=== PATIENT | male | born 1955 | race Caucasian/White ===

== ENCOUNTER → 2024-11-18 10:53 | Outpatient (REF) | payer MEDICARE, SELFPAY ==
--- OUTSIDE RECORDS SUMMARY | 2024-11-18 12:28 | XMS_ITS | Encounter Summary ---
Author Organization [facility] Address [address] [place] [address] Phone Care Team Providers Care Parquetry Floor Layer Name Role Phone Dashawn Johnson MD Unavailable Una Tamez APRN, [facility] Primary Care Provider Reason for Visit * Reason Comments Medication Refill Encounter Details Date Type Department Care Team (Late st Contact Info) Description 10/05/2023 Refill [facility] [address] [place] [id number] Ivan Austin MD [address] [id number] Medication Refill Social History Tobacco Use Types Packs/Day Years Used Date Smoking Tobacco: Never Assessed Sex and Gender Information Value Date Recorded Sex Assigned at Male 11/28/2023 10:34 AM CDT Legal Sex Male 11:33 PM CDT Gender Identity Male 11/28/2023 10:34 AM CDT Sexual Orientation Straight 11/28/2023 10 :34 AM CDT documented as of this encounter Miscellaneous Notes * Telephone Encounter - Zoë Lucero RN - 10/05/2023 9:40 AM CST Per nursing clinical judgement, provider to review and approve the medication(s) order(s) if appropriate. Requested Prescriptions Pending Prescriptions Disp Refills Tadalafil 5 MG Tablet [Pharmacy Med Name: TADALAFIL 5MG TABLETS] 30 Tablet Sig: TAKE 1 TABLET BY MOUTH DAILY Erectile Dysfunction Medication Protocol Failed - 10/05/2023 6:08 AM Failed - Active on medication list Failed - Visit with relevant provider in past 12 months or upcoming 90 days Recent Visits No visits were found meeting these conditions. Showing recent visits within past 365 days and meeting all other requirements Future Appointments No visits were found meeting these conditions. Showing future appointments within next 90 days and meeting all other requirements Failed - Erectile dysfunction on problem list Passed - Absence of nitrates on med list /DIE [employer]ER documented in this encounter Plan of Treatment Not on file documented as of this encounter Visit Diagnoses Not on filedocumented in this encounter Care Teams Parquetry Floor Layer Relationship Specialty Start Date End Date Una Tamez APRN, [employer] 4 [facility] [address] [place] [address] PCP - General Primary Care 03/04/24 Dashawn Johnson MD [address] [facility] [address] [place] [address] Consulting Physician General Surgery 11/29/23 documented as of this encounter
--- OUTSIDE RECORDS SUMMARY | 2024-11-18 12:28 | XMS_ITS | Referral Summary ---
Author Organization [facility] [address] Address [address] [place] [address] Care Team Providers Care Hand Paster Name Role Phone Una Tamez NP Primary Care Provider [phone] Encounters Date Type Department Care Team Description 09/24/2024 9:50 AM PILLOWCASE CLEANER Office Visit [address] [place] [id number] Maida Bacon NP S/P left inguinal hernia repair (Primary Dx) 09/13/2024 9:50 AM PILLOWCASE CLEANER - 09/13/2024 12:10 PM PILLOWCASE CLEANER Surgery [facility] Operating Room [address] [place] [address] Haroon Prabhakar MD INGUINAL HERNIA REPAIR WITH MESH - LAPAROSCOPIC ROBOTIC 09/13/2024 9:37 AM PILLOWCASE CLEANER Anesthesia Event [facility] [address] [place] [address] Adriana Estrada MD Williams, Calvin E., MD 09/13/2024 7:31 AM PILLOWCASE CLEANER - 09/13/2024 12:29 PM PILLOWCASE CLEANER Hospital Encounter [facility] Operating [facility] [address] [place] [address] Haroon Prabhakar MD Left inguinal hernia Discharge Disposition: Discharge to home or self care 08/29/2024 11:00 AM PILLOWCASE CLEANER Office Visit [facility] Primary Care at [address] [phone] Una Tamez NP Medicare annual wellness visit, subsequent (Primary Dx); Prediabetes; Mixed hyperlipidemia; Moderate episode of recurrent major depressive disorder (HCC) 08/22/2024 8:55 AM PILLOWCASE CLEANER Office Visit [address] [place] [address] Haroon Prabhakar MD Inguinal hernia of left side without obstruction or gangrene from Last 3 Months Allergies Active Allergy Reactions Criticality Noted Date Comments Amoxicillin Stomach upset Reaction: stomach issues, Medications atorvastatin (LIPITOR) 20 mg tabletIndications: Mixed hyperlipidemia Take 1 tablet (20 mg total) by mouth daily 90 tablet 3 08/29/19 25 Active cetirizine (ZyrTEC) 10 mg tablet Take 1 tablet (10 mg total) by mouth daily as needed for allergies Active tadalafiL (CIALIS) 5 mg tablet Take 1 tablet (5 mg total) by mouth daily as needed for erectile dysfunction Active minocycline (MINOCIN,DYNACIN) 100 mg capsule Take 1 capsule (100 mg total) by mouth daily as needed Active vitamin b complex tablet Take 1 tablet by mouth daily as needed Active citalopram (CeleXA) 10 mg tablet Take 1 tablet (10 mg total) by mouth daily 90 tablet 10/24/19 25 Active citalopram (CeleXA) 10 mg tablet TAKE 1 TABLET(10 MG) BY MOUTH DAILY 90 tablet 1 07/09/20 24 025 Discontin ued(Reord er) Active Problems Problem Noted Date Diagnosed Date S/P left inguinal hernia repair 09/25/2024 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 Continue tadalafil 5mg daily. F/u 6 months. Due for PSA in March 2024 Basal cell carcinoma (BCC) of skin of neck 01/20 Assessment & Plan (01/20/2021 8:13 AM CDT): Noel 2nd opinion. Will place referral to [facility] for basal cell carcinoma on left side of neck Elevated fasting glucose 07/21/2020 Assessment & Plan (10/12/2023 9:00 AM PILLOWCASE CLEANER): A1c done in office and was 5.8%. discussed prediabetes and diet changes. Assessment & Plan (01/20/2021 8:09 AM CDT): Glucose was 120 on last CMP in June of 2020 so we will check a hemoglobin A1c with labs Medicare annual wellness visit, subsequent 07/21 Assessment & Plan (09/01/2024 9:02 PM PILLOWCASE CLEANER): -Recommended: Healthy diet. Avoiding junk food/fast food. -30 minutes of exercise most days of the week. Increase to 45 minutes for weight loss. Immunizations: Up to date continue present diet with no restrictions, routine labs ordered, call if any problems Follow-up in 6 months. Assessment & Plan (12/12/2022 9:10 AM CDT): -Recommended: Healthy diet. Avoiding junk food/fast food. -30 minutes of exercise most days of the week. Increase to 45 minutes for weight loss. Immunizations: Up to date continue present diet with no restrictions, routine labs ordered, call if any problems Follow-up in 6 months. Assessment & Plan (07/25/2021 3:09 PM PILLOWCASE CLEANER): Patient Counseling: --Nutrition: Stressed importance of moderation in sodium/caffeine intake, saturated fat and cholesterol, caloric balance, sufficient intake of fresh fruits, vegetables, --Exercise: Stressed the importance of regular exercise. --Injury prevention: Discussed safety belts, throw rugs in house, smoke detectors, --Dental health: Discussed importance of regular tooth brushing, flossing, and dental visits. --Immunizations reviewed and offered- fld Assessment & Plan (07/21/2020 7:38 AM PILLOWCASE CLEANER): -Recommended: Healthy diet. Avoiding junk food/fast food. -30 minutes of exercise most days of the week. Increase to 45 minutes for weight loss. Immunizations: Recommended shingrex continue present plan, routine labs ordered, call if any problems Follow-up in 6 months. Natalee 12/04/2019 Assessment & Plan (12/12/2022 9:09 AM CDT): Stable. Has exacerbations where he restarts minocycline but does not take daily. Assessment & Plan (06/07/2022 8:33 AM CDT): Follows with [facility] in [place]. Takes Minocycline PRN for Rosacea outbreaks. Assessment & Plan (01/20/2021 8:17 AM CDT): Patient takes daily for outbreaks as needed Assessment & Plan (07/21/2020 7:39 AM PILLOWCASE CLEANER): Uses minocycline on/off. Assessment & Plan (12/04/2019 3:03 PM CDT): Will restart minocycline daily x [address] refill if he still needs it. Will try to d/c after 6 months. He has physical scheduled later this summer. Allergic rhinitis 12/31/2018 Assessment & Plan (01/20/2021 8:10 AM CDT): Patient saw ENT and is now taking Zyrtec D which is her quite well for him Assessment & Plan (12/31/2018 4:59 PM CDT): After debris exposure, use Sinus Rinse Avoid ear cleaning techniques May use Cetirizine (Zyrtec) 10 mg as needed Raynaud's disease without gangrene 09/20/2017 Assessment & Plan (09/20/2017 8:15 AM PILLOWCASE CLEANER): Discussed raynaud's disease. He doesn't have pain with it. Discussed using nifedipine. He does not want to start this. Mixed hyperlipidemia 05/04/2017 Assessment & Plan (09/01/2024 9:02 PM PILLOWCASE CLEANER): Lipid abnormalities are stable, reviewed previous lipid levels in [facility]. Continue statin therapy. Lipitor (atorvastatin) Order for lipid panel was given today to be obtained. Pt voiced understanding of lab drawn and continuation of current medication regimen. Assessment & Plan (10/12/2023 8:48 AM PILLOWCASE CLEANER): Lipid abnormalities are stable. Pharmacotherapy as ordered. Lipids will be reassessed in 6 months. Assessment & Plan (12/12/2022 9:10 AM CDT): Lipid abnormalities are stable, reviewed previous lipid levels in [facility]. Pharmacotherapy as ordered. Order for lipid panel was given today to be obtained. Pt voiced understanding of lab drawn and continuation of current medication regimen. Assessment & Plan (08/23/2022 9:24 AM PILLOWCASE CLEANER): Lab Results Component Value Date CHOL 196 04/29/2022 CHOL 187 07/10/2020 CHOL 203 (H) 07/18/2018 Lab Results Component Value Date HDL 81 04/29/2022 HDL 86 07/10/2020 HDL 76 07/18/2018 Lab Results Component Value Date LDL 102 (H) 04/29/2022 LDL 87 07/10/2020 LDL 109 (H) 07/18/2018 Lab Results Component Value Date TRIG 50 04/29/2022 TRIG 58 07/10/2020 TRIG 89 07/18/2018 No results found for: POCCHDLR No results found for: POCNONHDL No results found for: POCCHLPL At goal - continue current regimen of atorvastatin 20 mg every day Assessment & Plan (06/07/2022 8:33 AM CDT): Lipid abnormalities are stable. Pharmacotherapy as ordered. Lipids will be reassessed in 6 months. Assessment & Plan (07/25/2021 3:02 PM PILLOWCASE CLEANER): Lipid abnormalities are stable. Pharmacotherapy as ordered. Lipids will be reassessed in 6 months. Assessment & Plan (01/20/2021 8:05 AM CDT): Lipid abnormalities are stable, reviewed previous lipid levels in [facility]. Pharmacotherapy as ordered. Order for lipid panel was given today to be obtained. Pt voiced understanding of lab drawn and continuation of current medication regimen. Assessment & Plan (07/21/2020 7:38 AM PILLOWCASE CLEANER): Lipid abnormalities are stable. Pharmacotherapy as ordered. Lipids will be reassessed in 6 months. Assessment & Plan (05/24/2018 7:46 AM CDT): Lipid abnormalities are improving with treatment. Pharmacotherapy as ordered. Lipids will be reassessed in 6 months Labs as ordered. Assessment & Plan (05/04/2017 8:00 AM CDT): Lipid abnormalities are improving with lifestyle modifications. Pharmacotherapy as ordered. Lipids will be reassessed in 6 months. Drug-induced erectile dysfunction 05/04/2017 Assessment & Plan (08/23/2022 9:24 AM PILLOWCASE CLEANER): Currently on levitra - no concerns at thsi time Assessment & Plan (05/04/2017 8:45 AM CDT): Will trial levitra instead of cialis, due to stomach upset. He will call with any problems in change of medication. Generalized anxiety disorder 03/01/2016 Overview (11/24/2016): Generalized anxiety disorder Assessment & Plan (05/04/2017 8:43 AM CDT): Doing well with celexa. Continue same dose daily. F/u 6 months Depression 05/23/2011 Overview (11/25/2016): Depression Assessment & Plan (09/01/2024 9:03 PM PILLOWCASE CLEANER): Stable on current medication. Continue citalopram as ordered. May follow up in 6 months Assessment & Plan (10/12/2023 8:39 AM PILLOWCASE CLEANER): Improved. Will decrease citalopram to 10mg x 14 days and then discontinue. Can always contact us if notices problems discontiuing medication. Assessment & Plan (12/12/2022 9:11 AM CDT): Stable on current medication. Continue citalopram as ordered. Patient states that since he is retired he has been considering if he needs citalopram. I recommended decreasing it to 10 mg for 3-6 months 1st. Patient may start to do this and will see how he is doing in 6 months May follow up in 6 months Assessment & Plan (08/23/2022 9:24 AM PILLOWCASE CLEANER): Stable continue current regimen of celexa 20 mg every day Patient reiterated no suicidal thoughts at this time; take medication as directed; contact 911 and go to the ER if becomes suicidal; discussed side effects of medication with patient; encouraged healthy diet and exericise; encouraged patient to see a counselor Assessment & Plan (06/07/2022 4:28 PM CDT): Stable on current medication. Continue citalopram as ordered. May follow up in 6 months Assessment & Plan (07/25/2021 3:04 PM PILLOWCASE CLEANER): Stable on current medication. Continue citalopram as ordered. May follow up in 6 months. Pt is retiring in September. He may try to wean off the citalopram after senior living. Discussed decreasing down to 10mg daily x 7 days, then discontinuing and time frame to notice different. Assessment & Plan (01/20/2021 8:05 AM CDT): Stable on current medication. Continue citalopram as ordered. May follow up in 6 months Assessment & Plan (07/21/2020 7:38 AM PILLOWCASE CLEANER): Stable on current medication. Continue citalopram as ordered. May follow up in 6 months Assessment & Plan (05/24/2018 7:46 AM CDT): Psychological condition is improving with treatment. Medication changes per orders. Psychological condition will be reassessed at the next regular appointment. Resolved Problems Problem Noted Date Diagnosed Date Resolved Date Left inguinal hernia 08/22/2024 025 Inguinal hernia of left side without obstruction or gangrene 10/12/2023 09/25/2024 Assessment & Plan (08/22/2024 8:54 AM PILLOWCASE CLEANER): Given the symptomatic nature we will set him up for a left inguinal hernia repair. We have discussed the need for mesh implantation. We have discussed postoperative lifting restrictions. He was in understanding of the plan. Preadmission testing will be sent in. Consent to be obtained. All questions answered. Viral URI 08/17/2022 12/12/2022 Assessment & Plan (08/23/2022 9:25 AM PILLOWCASE CLEANER): Sx consistent with viral URI - ER precuations given - can try benzocaine and tessalon for cough and sore throat. Will add muscinex and flonase as well due to sinus sx Impacted cerumen of right ear 12/31/2018 12/04/2019 Assessment & Plan (12/31/2018 5:00 PM CDT): Avoid ear cleaning techniques May use Cetirizine (Zyrtec) 10 mg as needed Strep pharyngitis 10/25/2018 12/04/2019 Assessment & Plan (12/12/2018 11:48 AM CDT): Rapid strep positive. Will treat with azithromycin. Ibuprofen for fever, throat pain. Call if no improvement in 5-7 days. F/u prn Assessment & Plan (10/25/2018 9:05 AM PILLOWCASE CLEANER): Strep A POC test positive in office. Will treat with keflex 500mg BID x10 days. Recommended salt gargles and OTC tylenol as needed for pain and fevers. Encounter for annual general medical examination without abnormal findings in adult 05/24/2018 12/04/2019 Assessment & Plan (05/24/2018 7:45 AM CDT): -Recommended: Healthy diet. Avoiding junk food/fast food. -30 minutes of exercise most days of the week. -Colonoscopy screenings are up to date -Influenza vaccine every year - up to date - updated tdap today -he is interested in shingles vaccine - recommended pharmacy, as we do not carry it currently -F/u in 1 year for Annual PE or sooner if needed Other acute sinusitis 09/20/20172017 Assessment & Plan (11/06/2017 3:34 PM CDT): I recommended claritin D or 12 hour sudafed twice daily for a few days. I'd like him to try these first and if symptoms worsen or do not improve with Claritin D then I would like him to go ahead and start the Omnicef that I am calling in twice daily for 10 days. Assessment & Plan (09/20/2017 7:35 AM PILLOWCASE CLEANER): 1. Sudafed 2. azithromycin 3. Nasal saline rinses as needed for congestion. 4. Follow-up in 5-7 days - if symptoms worsen or persist Other chest pain 09/20/2017 12/04/2019 Assessment & Plan (09/20/2017 8:09 AM PILLOWCASE CLEANER): Atypical chest pain. EKG appears normal. He thinks it feels like heart burn and has been taking quite a bit of advil with his sinus infection, which is unusual for him. However, symptoms are not typical for heart burn. I told him he can try maalox otc to see if that helps, but recommend referal to cardiology for stress test. Thyroid disorder screen 09/07/201708/23 Assessment & Plan (09/07/2017 8:08 AM PILLOWCASE CLEANER): Will check for thyroid disorder. Labs as ordered. Immunizations Immunization Administration Dates Next Due Influenza, Quadrivalent, Spl it, Preservative Free, Intramuscular 05/12/2022,07/07/2021,06/15/2020,05/24 Influenza, Split 05/10/2013 Influenza, Trivalent, Adjuva nted, Intramuscular 06/13/2024 Influenza, Unspecified 06/06/2023,2017(Deferred: Patient Refused) Pfizer SARS-CoV-2 Monovalent Vaccination (12+ Yrs) PURPLE 11/02/2020,10/12/2020 Pfizer Sars-Cov-2 Bivalent V accination (12+ YRS) 05/12/2022 Pneumococcal Conjugate Pcv20 06/07/2022 Tdap 05/24/2018 ZOSTER Recombinant 09/22/2020,07/21/2020 Social History Tobacco Use Types Packs/Day Years Used Date Smoking Tobacco: Never Smokeless Tobacco: Never Tobacco Cessation:Counseling Given: Not Answered Alcohol Use Standard Drinks/Week Comments Yes 0 (1 standard drink = 0.6 oz pur e alcohol) social AUDIT-C Answer Date Recorded Q1: How often do you have a drink containing alcohol? 4 or more times a week 09/05/2024 Q2: How many drinks containi ng alcohol do you have on a typical day when you are drinking? 1 or 2 Q3: How often do you have si x or more drinks on one occasion? Never 09/05/2024 PHQ-2 Answer Date Recorded PHQ-2 Total Score (If total score is 3 or more points, staff should administer the PHQ-9) 0 08/29/2024 Personal Safety Answer Date Recorded Have you ever been in or are you currently in a harmful physical or emotional relationship or is someone making you feel afraid or unsafe? Denies 09/13/2024 Sex and Gender Information Value Date Recorded Sex Assigned at Not on file Legal Sex Male 11:42 AM PILLOWCASE CLEANER Gender Identity Male 09/14/2021 3:00 PM PILLOWCASE CLEANER Sexual Orientation Straight 12/04/2019 9: 00 AM CDT Last Filed Vital Signs Vital Sign Reading Time Taken Comments Blood Pressure 118/60 09/24/2024 9:22 AM PILLOWCASE CLEANER Pulse 55 09/24/2024 9:22 AM PILLOWCASE CLEANER Temperature 36.3 C (97.3 F) 09/24/2024 9:22 AM PILLOWCASE CLEANER Respiratory Rate 16 09/13/2024 12:2 0 PM PILLOWCASE CLEANER Oxygen Saturation 98% 09/24/2024 9:22 AM PILLOWCASE CLEANER Inhaled Oxygen Concentration - - Weight 70.3 kg (154 lb 14.4 oz) 09/24/2024 9:22 AM PILLOWCASE CLEANER Height 175.3 cm (5' 9 ) 09/24/2024 9:22 AM PILLOWCASE CLEANER Body Mass Index 22.87 09/24/2024 9:22 AM PILLOWCASE CLEANER Plan of Treatment Not on file Medical Devices Implanted Type Area Associate Marketing Manager Device Identifier Shelf Expiration Date Model / Serial / Lot [employer] R Bard Mesh Surgical Inguinal Hernia Synthetic Patch 3dmax 4x6in [id number] - [id number] Implanted:Qty : 1 on 09/13/2024 by Haroon Prabhakar MD at [facility] Left: Inguinal [employer] 04/17/2029 [id number] / / [id number] Procedures Procedure Name Priority Date/Time Associated Diagnosis Comments SURGICAL PATHOLOGY Routine 09/13/2024 1: 17 PM PILLOWCASE CLEANER Left inguinal hernia FL AN ELECTIVE ENDOTRACHEAL AIRWAY Routine 09/13/2024 9:51 AM PILLOWCASE CLEANER XI INGUINAL HERNIA REPAIR - LAPAROSCOPIC ROBOTIC 09/13/2024 9:12 AM PILLOWCASE CLEANER Left inguinal hernia B ABO / RH CONFIRMATION TESTING STAT 09/13/2024 7:50 AM PILLOWCASE CLEANER EGFR STAT 09/13/2024 7:48 AM PILLOWCASE CLEANER DIFFERENTIAL AUTO STAT 09/13/2024 7:4 8 AM PILLOWCASE CLEANER ANTIBODY SCREEN STAT 09/13/2024 7:48 AM PILLOWCASE CLEANER ABO/RH STAT 09/13/2024 7:48 AM PILLOWCASE CLEANER TYPE AND SCREEN STAT 09/13/2024 7:48 AM PILLOWCASE CLEANER CBC WITH AUTO DIFFERENTIAL STAT 09/13/2024 7:48 AM PILLOWCASE CLEANER BASIC METABOLIC PANEL STAT 09/13/2024 7:48 AM PILLOWCASE CLEANER PSA SCREEN Routine 05/08/2024 8:14 AM CDT HEPATITIS C ANTIBODY Routine 03/31/2023 8:29 AM CDT Need for hepatitis C screening test COLONOSCOPY IMAGES 08/25/2016 from Last 3 Months or Most Recently Relevant to Health Maintenance Results * Surgical pathology (09/13/2024 1:17 PM PILLOWCASE CLEANER) Tissue (Hernia sac) 09/13/2024 10:41 AM PILLOWCASE CLEANER Narrative PATHOLOGY [facility] ([facility]) - 09/16/2024 4:19 PM PILLOWCASE CLEANER EPIC results best viewed via link to PDF [facility] Department of Pathology [address] [place] [id number] Note to Patients: This report may contain a detailed description of human tissue sent by a health care provider to the laboratory for pathologic evaluation. The content of this report is essential for diagnosis and may provide important critical findings. This information may be unfamiliar to patients to review without a medical professional present. It is advised that the patient review this report in the presence of a health care provider who can answer questions and explain the details. Final Report Patient Name: DIOMEDES AMOR Address: [facility] [address], [place] [address] Gender: M : 1955 (Age: 69) Service: Surgery Location: [facility] Hospital #: [id number] Patient Type: [facility] Taken: 09/13/2024 Received: 09/13/2024 Accessioned: 09/13/2024 Reported: 09/16/2024 Physician(s):Haroon Prabhakar MD Diagnosis: Hernia sac, left inguinal, repair: - Fibrovascular membranous tissue compatible with hernia sac. Gus Melendez MD Report Electronically Reviewed and Signed Out By Gus Melendez MD 09/16/2024 16:19:09 Specimen(s) Received: A: Hernia Sac Microscopic Description: Microscopic examination shows benign-appearing fibrovascular membranous tissue, partially lined by bland mesothelium. There is no evidence of malignancy. The findings are compatible with the clinical impression of a hernia sac. Clinical History: Left inguinal hernia. Inguinal hernia repair with mesh - laparoscopic robotic. Gross Description: Received in a single formalin filled container labeled with DIOMEDES AMOR and hernia sac . It is a red-zepeda sac-like structure resembling a hernia sac measuring 4 x 2 cm. It is devoid of hemorrhage or necrosis. Represented in 1 cassette. Ran Mcbride R.N., P.A./Jaleesa Morrison M.D. REPORT IMAGES AND SCANNED DOCUMENTS, IF INCLUDED, ONLY VIEWABLE IN PDF VERSION OF REPORT The performance characteristics of some immunohistochemical stains, fluorescence in-situ hybridization tests and immunophenotyping by flow cytometry cited in this report (if any) were determined by the Surgical Pathology Department at [facility] as part of an ongoing supplier quality engineer program and in compliance with federally mandated regulations drawn from the Clinical Laboratory Improvement Act of 1988 (CLIA '88). Some of these tests rely on the use of analyte specific reagents and are subject to specific labeling requirements by the US Food and Drug Administration. Such diagnostic tests may only be performed in a facility that is certified by the Department of Health and Human Services as a high complexity laboratory under CLIA '88. The FDA has determined that such clearance or approval is not necessary. This test is used for clinical purposes. It should not be regarded as investigational or for research. Nevertheless, federal rules concerning the medical use of analyte specific reagents require that the following disclaimer be attached to the report: This test was developed and its performance characteristics determined by the Surgical Pathology Department [facility]. It has not been cleared or approved by the U. S. Food and Drug Administration. Note for decalcified specimens: This assay has not been validated on decalcified tissues. Results should be interpreted with caution given the possibility of false negativity on decalcified specimens Haroon Prabhakar MD LAB PATHOLOGY OR DERABLES Final Result Performing Organization Address City/State/[facility] Co de Phone Number PATHOLOGY [place] [phone] * [place] AN ELECTIVE ENDOTRACHEAL AIRWAY (09/13/2024 9:51 AM PILLOWCASE CLEANER) Narrative Haroon Gunter CRNA - 09/13/2024 9:51 AM PILLOWCASE CLEANER Haroon Gunter CRNA 09/13/2024 9:52 AM Airway Patient location: OR Urgency: elective Indications for airway management: anesthesia Difficult airway: no Staff: Placed by: ACADEMIC ADVISING DIRECTOR: Haroon Gunter CRNA Emergent airway documentation: Risks and benefits discussed: yes Consent obtained: yes Consent given by: patient Airway prep: Preoxygenated: yes Patient position: sniffing MILS maintained throughout: yes Mask difficulty assessment: 1 - vent by mask Sedation level during airway: GA Final airway details: Final airway type: endotracheal airway Tube type: ETT ETT size: 7.0 mm Cuffed: yes Technique used for successful ETT placement: video laryngoscopy Devices/Methods used in placement: stylet Insertion site: oral Blade type: Cindi Video blade type: Meadows Blade size: 3 Cormack-Lehane (video): grade IIa - partial view of glottis Cuff volume: 7 mL Cuff inflated with: air ETT to teeth: 24 cm Placement verified by: auscultation and CO2 detection Airway secured with: silk tape Number of attempts: 1 Haroon Lyric COFFMAN ANESTHESIA ORDERABLES Final Re sult * ABO / Rh Confirmation Testing (09/13/2024 7:50 AM PILLOWCASE CLEANER) ABO/Rh Confirmation O Positive [facility] Blood 09/13/2024 7:50 AM PILLOWCASE CLEANER 09/13/2024 8:35 AM PILLOWCASE CLEANER Haroon Prabhakar MD LAB BLOOD ORDERA BLES Final Result [facility] ([place]) [address] [facility] [address] [facility] * eGFR (09/13/2024 7:48 AM PILLOWCASE CLEANER) eGFR >90 >=60 mL/min/1. 73 m2 Comment: Interpretive Data Reference Interval Normal >/= 90 mL/min/1.73m2 Mildly decreased* 60 - 89 mL/min/1.73m2 Mildly to moderately decreased 45 - 59 mL/min/1.73m2 Moderately to severely decreased 30 - 44 mL/min/1.73m2 Severely decreased 15 - 29 mL/min/1.73m2 Kidney Failure < 15 mL/min/1.73m2 *Relative to young adult level Estimated glomerular filtration rate is determined by the 2020 CKD-EPI equation recommended by the National Kid[employer] (A Unifying Approach to GFR Estimation: Recommendations of the [employer]F-ASK Task Force on Reassessing the Inclusion of Race in Diagnosing Kidney Disease, JASN 2020). The CKD-EPI equation should not be used for patients with unstable renal function and has not been validated in children and those over 70. Current interpretive data was last reviewed 2021. Blood 09/13/2024 7:48 AM PILLOWCASE CLEANER 09/13/2024 7:53 AM PILLOWCASE CLEANER Haroon Prabhakar MD LAB BLOOD ORDERA BLES Final Result [facility] ([place]) 1 [facility] [place] [address] * Differential, auto (09/13/2024 7:48 AM PILLOWCASE CLEANER) Neutrophil abs 2.4 1.5 - 6.5 K/cumm Imm gran abs 0.0 0.0 - 0.1 K/cumm [facility] ([place]) Lymphocyte abs 1.9 0.8 - 3.3 K/cumm [facility] ([place]) Monocyte abs 0.5 0.2 - 0.8 K/cumm [facility] ([place]) Eosinophil abs 0.3 0.0 - 0.5 K/cumm [facility] ([place]) Basophil abs 0.1 0.0 - 0.1 K/cumm [facility] ([place]) Neutrophil pct 47.2 % [facility] ([place]) Comment: Interpretive Data Percent cell count reference ranges are not reported, since discordance with absolute values may lead to misinterpretation of CBC data. Current Interpretive Data was last revised on 2017. Imm gran pct 0.2 % [facility] ([place]) Comment: Interpretive Data Percent cell count reference ranges are not reported, since discordance with absolute values may lead to misinterpretation of CBC data. Current Interpretive Data was last revised on 2017. Lymphocyte pct 36.7 % [facility] ([place]) Comment: Interpretive Data Percent cell count reference ranges are not reported, since discordance with absolute values may lead to misinterpretation of CBC data. Current Interpretive Data was last revised on 2017. Monocyte pct 10.0 % [facility] ([place]) Comment: Interpretive Data Percent cell count reference ranges are not reported, since discordance with absolute values may lead to misinterpretation of CBC data. Current Interpretive Data was last revised on 2017. Eosinophil pct 4.9 % [facility] ([place]) Comment: Interpretive Data Percent cell count reference ranges are not reported, since discordance with absolute values may lead to misinterpretation of CBC data. Current Interpretive Data was last revised on 2017. Basophil pct 1.0 % [facility] ([place]) Comment: Interpretive Data Percent cell count reference ranges are not reported, since discordance with absolute values may lead to misinterpretation of CBC data. Current Interpretive Data was last revised on 2017. Blood 09/13/2024 7:48 AM PILLOWCASE CLEANER 09/13/2024 7:53 AM PILLOWCASE CLEANER Haroon Prabhakar MD LAB BLOOD ORDERA BLES Final Result Performing Organization Address City/[facility]/ZIP Co de Phone Number [facility] ([place] 1 [facility] [place] [address] * CBC with auto differential (09/13/2024 7:48 AM PILLOWCASE CLEANER) WBC 5.1 3.8 - 9.9 K/cumm Hgb 14.9 13.0 - 17.5 g/dL [facility] ([place]) Hct 44.4 38.9 - 50.3 % [facility] ([place]) Plt 245 150 - 400 K/cumm [facility] ([place]) MPV 9.4 9.1 - 12.3 fL [facility] ([place]) RBC 5.09 4.30 - 5.80 M/cumm [facility] ([place]) MCV 87.2 81.3 - 96.4 fL [facility] ([place]) MCH 29.3 27.1 - 33.3 pg [facility] ([place]) MCHC 33.6 32.3 - 35.7 g/dL [facility] ([place]) RDW CV 12.5 11.1 - 14.9 % [facility] ([place]) RDW SD 40.1 35.7 - 48.1 fL [facility] ([place]) NRBC abs 0.00 0.00 - 0.01 K/cumm [facility] ([place]) Blood 09/13/2024 7:48 AM PILLOWCASE CLEANER 09/13/2024 7:53 AM PILLOWCASE CLEANER us Haroon Prabhakar MD LAB BLOOD ORDERA BLES Final Result [facility] ([place]) 1 [facility] [place] [address] * ABO/Rh (09/13/2024 7:48 AM PILLOWCASE CLEANER) Pathologist [facility] ABO/Rh O Positive Blood 09/13/2024 7:48 AM PILLOWCASE CLEANER 09/13/2024 7:53 AM PILLOWCASE CLEANER Narrative [facility] ([place] - 09/13/2024 8:34 AM PILLOWCASE CLEANER Has the patient had Daratumumab or Isatuximab in the past 6 months?->Unknown Haroon Prabhakar MD LAB BLOOD BANK T EST ORDERABLES Final Result Performing Organization Address City/State/[facility] Co de Phone Number [facility] ([place]) [address] [place] [address] [place] [address] * Antibody screen (09/13/2024 7:48 AM PILLOWCASE CLEANER) [facility] Alicia, indirect, Gel Interpretation Negative ABSC Blood 09/13/2024 7:48 AM PILLOWCASE CLEANER 09/13/2024 7:53 AM PILLOWCASE CLEANER Narrative [facility] ([place]) - 09/13/2024 8:34 AM PILLOWCASE CLEANER Has the patient had Daratumumab or Isatuximab in the past 6 months?->Unknown Haroon Prabhakar MD LAB BLOOD BANK T EST ORDERABLES Final Result Performing Organization Address City/[facility] Co de Phone Number [facility] ([place]) [address] [place] [address] [place] [place] [address] * (ABNORMAL) Basic metabolic panel (09/13/2024 7:48 AM PILLOWCASE CLEANER) Pathologist [facility] Sodium 137 135 - 145 mmol/L Potassium, pl 3.7 3.3 - 4.9 mmol/L [facility] ([place]) Chloride 99 97 - 110 mmol/L [facility] ([place]) CO2 27 22 - 32 mmol/L [facility] ([place]) Anion gap 11 2 - 15 mmol/L [facility] ([place]) BUN 11 6 - 25 mg/dL [facility] ([place]) Creatinine 0.75(L) 0.80 - 1.30 mg/dL [facility] ([place]) Glucose 110 70 - 199 mg/dL [facility] ([place]) Comment: Interpretive Data Fasting glucose >/= 126 mg/dl is diagnostic for diabetes. Fasting is defined as no caloric intake for at least 8 hours. Fasting glucose between 100 mg/dl to 125 mg/dl is diagnostic of prediabetes. In a patient with classic symptoms of hyperglycemia or hyperglycemic crisis, a random glucose >/= 200 mg/dl is diagnostic for diabetes. In the absence of unequivocal hyperglycemia, results should be confirmed by repeat testing. The classification and Diagnosis of Diabetes Diabetes Care 202; 46: S19-S40. Current interpretive data was last revised 2022. Calcium 9.6 8.5 - 10.3 mg/dL [facility] ([place]) Blood 09/13/2024 7:48 AM PILLOWCASE CLEANER 09/13/2024 7:53 AM PILLOWCASE CLEANER Haroon Prabhakar MD LAB BLOOD ORDERA BLES Final Result Performing Organization Address [facility] Co de Phone Number [facility] ([place]) 1 [facility] [place] [address] * PSA screen (05/08/2024 8:14 AM CDT) PSA 1.06 < OR = 4.00 ng/mL [facility] Comment: The total PSA value from this assay system is standardized against the WHO standard. The test result will be approximately 20% lower when compared to the equimolar-standardized total PSA (Chuyita Tushar). Comparison of serial PSA results should be interpreted with this fact in mind. This test was performed using the Siemens chemiluminescent method. Values obtained from different assay methods cannot be used interchangeably. PSA levels, regardless of value, should not be interpreted as absolute evidence of the presence or absence of disease. 05/08/2024 8:14 AM CDT 05/08/2024 8:15 AM CDT Narrative [facility] - 05/09/2024 5:14 AM CDT FASTING:YES FASTING: YES us Una Tamez NP LAB BLOOD ORDERABLES Final Re sult [facility] [address] [place] [address] * Hepatitis C antibody (03/31/2023 8:29 AM CDT) Hep C Ab NON-REACTI VE NON-REACT NAEEM [facility] Comment: HCV antibody was non-reactive. There is no laboratory evidence of HCV infection. In most cases, no further action is required. However, if recent HCV exposure is suspected, a test for HCV RNA (test code 51706) is suggested. For additional information please refer to http://education.Medcurrent/faq/FJY73z6 (This link is being provided for informational/ educational purposes only.) Blood 03/31/2023 8:29 AM CDT 03/31/2023 8:29 AM CDT Narrative [facility] - 04/01/2023 3:51 AM CDT FASTING:YES FASTING: YES Una Tamez NP LAB MICROBIOLOGY - GENERAL OR DERABLES Final Result [facility] [address] [place] [address] * COLONOSCOPY IMAGES (08/25/2016) Anatomical Region Laterality Modality Other Narrative 08/25/2016 Ordered by an unspecified provider. Historical Provider GI PROCEDURE ORDERABLES F inal Result from Last 3 Months or Most Recently Relevant to Health Maintenance Insurance [employer] CHOICE MEDICARE PPO [facility] CMR Care Teams Hand Paster Relationship Specialty Start Date End Date Una Tamez NP PCP - General Family Medicine 02/06/18
--- OUTSIDE RECORDS SUMMARY | 2024-11-18 12:28 | XMS_ITS | Clinical Summary ---
Author Organization [facility] Address [address], [facility] [address] [place] [address] Phone Care Team Providers Care Heavy Cleaner Name Role Phone Dashawn Johnson MD Unavailable Una Tamez APRN, [employer] Primary Care Provider Allergies Active Allergy Reactions Criticality Noted Date Comments Amoxicillin Nausea 04/03/2024 Medications atorvastatin (LIPITOR) 20 MG Tablet Take 1 Tablet by mouth daily. 02/15/2024 Active Cetirizine HCl 10 MG Chewable Tablet Take 10 mg by mouth as needed. Active citalopram (CeleXA) 10 MG Tablet Take 10 mg by mouth every morning. 11/03/2023 Encounters Date Type Department Care Team Description 08/29/2024 Travel from Last 3 Months Family History Medical History Relation Name Comments No Known Problems Brother No Known Problems Daughter 1 No Known Problems Daughter 2 Cancer Father Prostate cancer Hypertension Father Diabetes Mother No Known Problems Sister Relation Name Status Comments Brother Daughter 1 Alive Daughter 2 Alive Father Mother Sister Alive Social History Tobacco Use Types Packs/Day Years Used Date Smoking Tobacco: Never Passive Smoke Exposure: Never Smokeless Tobacco: Never Tobacco Cessation:Counseling Given: No Alcohol Use Standard Drinks/Week Comments Yes 0 (1 standard drink = 0.6 oz pur e alcohol) 6-8 beers a week Sexually Active Control Partners Comments Yes Female Sex and Gender Information Value Date Recorded Sex Assigned at Male 11/28/2023 10:34 AM CDT Legal Sex Male 11:33 PM CDT Gender Identity Male 11/28/2023 10:34 AM CDT Sexual Orientation Straight 11/28/2023 10 :34 AM CDT Last Filed Vital Signs Vital Sign Reading Time Taken Comments Blood Pressure 126/80 04/03/2024 9:10 AM CDT Pulse 57 04/03/2024 9:10 AM CDT Temperature 36.4 C (97.5 F) 04/03/2024 9:10 AM CDT Respiratory Rate 20 04/03/2024 9:10 AM CDT Oxygen Saturation 97% 04/03/2024 9:10 AM CDT Inhaled Oxygen Concentration - - Weight 72.6 kg (160 lb) 08/29/2024 2:21 PM [employer] Height 175.3 cm (5' 9 ) 08/29/2024 2:21 PM [employer] Body Mass Index 23.63 08/29/2024 2:21 PM [employer] Plan of Treatment Health Maintenance Due Date Last Done Comments Hepatitis C Virus (HCV) Screening 1955 Colonoscopy 2002 Colorectal Cancer Screening 2002 Cologuard 2007 Immunochemical Fecal Occult Blood 2007 PSA Discussion 02/26/2012 Influenza Immunization (#1) 04/21/202405/21, 05/12/2022, 07/07/2021, Additional history exists SARS-COV-2 Immunization ( season) 2024 06/06/2023, 05/12/2022, 12/01/2021, Additional history exists Respiratory Syncytial Virus (RSV) Immunization (Adult) (1 - 1-dose 75+ series) 02/26/2032 DTaP/Tdap/Td Immunization Discontinued 05/24/2018 TdaP Immunization Completed 05/24/2018 Zoster Immunization Completed 09/22/2020, Pneumococcal Immunization (50+ years) Completed 06/07/2022 Hepatitis B Immunization Aged Out No longer eligible based on patient's age to complete this topic Meningococcal Immunization (ACWY) Aged Out No longer eligible based on patient's age to complete this topic Rotavirus Immunization Aged Out No lo nger eligible based on patient's age to complete this topic Insurance MEDICARE C [employer] Care Teams Heavy Cleaner Relationship Specialty Start Date End Date Una Tamez APRN, [place] [facility] [address] [place] [address] PCP - General Primary Care 03/04/24 Dashawn Johnson MD [address] [facility] [address] [place] [id number] Consulting Physician General Surgery 11/29/23
--- OUTSIDE RECORDS SUMMARY | 2024-11-18 12:28 | XMS_ITS | Clinical Summary ---
Author Organization [facility] Medical Office Building [address] Address [address] [place] [address] Care Team Providers Care Track Oiler Name Role Phone Una Tamez NP Primary Care Provider [phone] Allergies Active Allergy Reactions Criticality Noted Date [...] 10/12/2023 Assessment & Plan (10/12/2023 8:48 AM ARTIFACTS CONSERVATOR): Improved. Continue tadalafil 5mg daily. F/u 6 months. Due for PSA in March 2024 Basal cell carcinoma (BCC) of skin of neck 01/20 Assessment & Plan (01/20/2021 8:13 AM CDT): Ojs 2nd opinion. [address] place referral to [facility] for basal cell carcinoma on left side of neck Elevated fasting glucose 07/21/2020 Assessment & Plan (10/12/2023 9:00 AM ARTIFACTS CONSERVATOR): A1c done in office and was 5.8%. discussed prediabetes and diet changes. Assessment & Plan (01/20/2021 8:09 AM CDT): Glucose was 120 on last CMP in June of 2020 so we will check a hemoglobin A1c with labs Medicare annual wellness visit, subsequent 07/21 Assessment & Plan (09/01/2024 9:02 PM ARTIFACTS CONSERVATOR): -Recommended: Healthy diet. Avoiding junk food/fast food. [...] months. Assessment & Plan (07/25/2021 3:09 PM ARTIFACTS CONSERVATOR): Patient Counseling: --Nutrition: Stressed importance of moderation in sodium/caffeine intake, saturated fat and cholesterol, caloric balance, sufficient intake of fresh fruits, vegetables, --Exercise: Stressed the importance of regular exercise. --Injury prevention: Discussed safety belts, throw rugs in house, smoke detectors, --Dental health: Discussed importance of regular tooth brushing, flossing, and dental visits. --Immunizations reviewed and offered- utd Assessment & Plan (07/21/2020 7:38 AM ARTIFACTS CONSERVATOR): -Recommended: Healthy diet. Avoiding junk food/fast food. -30 minutes of exercise most days of the week. Increase to 45 minutes for weight loss. Immunizations: Recommended shingrex continue present plan, routine labs ordered, call if any problems Follow-up in 6 months. Rosacea 12/04/2019 Assessment & Plan (12/12/2022 9:09 AM CDT): Stable. Has exacerbations where he restarts minocycline but does not take daily. Assessment & Plan (06/07/2022 8:33 AM CDT): Follows with [facility] in [place]. Takes Minocycline PRN for Rosacea outbreaks. Assessment & Plan (01/20/2021 8:17 AM CDT): Patient takes daily for outbreaks as needed Assessment & Plan (07/21/2020 7:39 AM ARTIFACTS CONSERVATOR): Uses minocycline on/off. Assessment & Plan (12/04/2019 [...] 09/20/2017 Assessment & Plan (09/20/2017 8:15 AM ARTIFACTS CONSERVATOR): Discussed raynaud's disease. He doesn't have pain with it. Discussed using nifedipine. He does not want to start this. Mixed hyperlipidemia 05/04/2017 Assessment & Plan (09/01/2024 9:02 PM ARTIFACTS CONSERVATOR): Lipid abnormalities are stable, reviewed previous lipid levels in psychiatric. Continue statin therapy. Lipitor (atorvastatin) Order for lipid panel was given today to be obtained. Pt voiced understanding of lab drawn and continuation of current medication regimen. Assessment & Plan (10/12/2023 8:48 AM ARTIFACTS CONSERVATOR): Lipid abnormalities are stable. Pharmacotherapy as ordered. Lipids will be reassessed in 6 months. Assessment & Plan (12/12/2022 9:10 AM CDT): Lipid abnormalities are stable, reviewed previous lipid levels in psychiatric. Pharmacotherapy as ordered. Order for lipid panel was given today to be obtained. Pt voiced understanding of lab drawn and continuation of current medication regimen. Assessment & Plan (08/23/2022 9:24 AM ARTIFACTS CONSERVATOR): Lab Results Component Value Date CHOL 196 [...] months. Assessment & Plan (07/25/2021 3:02 PM ARTIFACTS CONSERVATOR): Lipid abnormalities are stable. Pharmacotherapy as ordered. Lipids will be reassessed in 6 months. Assessment & Plan (01/20/2021 8:05 AM CDT): Lipid abnormalities are stable, reviewed previous lipid levels in epic. Pharmacotherapy as ordered. Order for lipid panel was given today to be obtained. Pt voiced understanding of lab drawn and continuation of current medication regimen. Assessment & Plan (07/21/2020 7:38 AM ARTIFACTS CONSERVATOR): Lipid abnormalities are stable. Pharmacotherapy as ordered. [...] 05/04/2017 Assessment & Plan (08/23/2022 9:24 AM ARTIFACTS CONSERVATOR): Currently on levitra - no concerns at [...] Depression Assessment & Plan (09/01/2024 9:03 PM ARTIFACTS CONSERVATOR): Stable on current medication. Continue citalopram as ordered. May follow up in 6 months Assessment & Plan (10/12/2023 8:39 AM ARTIFACTS CONSERVATOR): Improved. Will decrease citalopram to 10mg x [...] months Assessment & Plan (08/23/2022 9:24 AM ARTIFACTS CONSERVATOR): Stable continue current regimen of celexa 20 [...] months Assessment & Plan (07/25/2021 3:04 PM ARTIFACTS CONSERVATOR): Stable on current medication. Continue citalopram as ordered. May follow up in 6 months. Pt is retiring in September. He may try to wean off the citalopram after chcf. Discussed decreasing down to 10mg daily x 7 days, then discontinuing and time frame to notice different. Assessment & Plan (01/20/2021 8:05 AM CDT): Stable on current medication. Continue citalopram as ordered. May follow up in 6 months Assessment & Plan (07/21/2020 7:38 AM ARTIFACTS CONSERVATOR): Stable on current medication. Continue citalopram as [...] 09/25/2024 Assessment & Plan (08/22/2024 8:54 AM ARTIFACTS CONSERVATOR): Given the symptomatic nature we will set him up for a left inguinal hernia repair. We have discussed the need for mesh implantation. We have discussed postoperative lifting restrictions. He was in understanding of the plan. Preadmission testing will be sent in. Consent to be obtained. All questions answered. Viral URI 08/17/2022 12/12/2022 Assessment & Plan (08/23/2022 9:25 AM ARTIFACTS CONSERVATOR): Sx consistent with viral URI - ER [...] prn Assessment & Plan (10/25/2018 9:05 AM ARTIFACTS CONSERVATOR): Strep A POC test positive in office. [...] days. Assessment & Plan (09/20/2017 7:35 AM ARTIFACTS CONSERVATOR): 1. Sudafed 2. azithromycin 3. Nasal saline rinses as needed for congestion. 4. Follow-up in 5-7 days - if symptoms worsen or persist Other chest pain 09/20/2017 12/04/2019 Assessment & Plan (09/20/2017 8:09 AM ARTIFACTS CONSERVATOR): Atypical chest pain. EKG appears normal. He [...] 09/07/201708/23 Assessment & Plan (09/07/2017 8:08 AM ARTIFACTS CONSERVATOR): Will check for thyroid disorder. Labs as ordered. Encounters Date Type Department Care Team Description 09/24/2024 9:50 AM ARTIFACTS CONSERVATOR Office Visit [address] [place] [phone] Maida Bacon, ADULT PROTECTIVE CASEWORKER S/P left inguinal hernia repair (Primary Dx) 09/13/2024 9:50 AM ARTIFACTS CONSERVATOR - 09/13/2024 12:10 PM ARTIFACTS CONSERVATOR Surgery [facility] Operating Room [address] [place] [address] Haroon Prabhakar MD INGUINAL HERNIA REPAIR WITH MESH - LAPAROSCOPIC ROBOTIC 09/13/2024 9:37 AM ARTIFACTS CONSERVATOR Anesthesia Event [facility] Operating Room [address] [place] [address] Adriana Estrada MD Williams, Calvin E., MD 09/13/2024 7:31 AM ARTIFACTS CONSERVATOR - 09/13/2024 12:29 PM ARTIFACTS CONSERVATOR Hospital Encounter [facility] Operating Room [address] [place] [address] Haroon Prabhakar MD Left inguinal hernia Discharge Disposition: Discharge to home or self care 08/29/2024 11:00 AM ARTIFACTS CONSERVATOR Office Visit [facility] Primary Care at [address] [address] Una Tamez NP Medicare annual wellness visit, subsequent (Primary Dx); Prediabetes; Mixed hyperlipidemia; Moderate episode of recurrent major depressive disorder (HCC) 08/22/2024 8:55 AM ARTIFACTS CONSERVATOR Office Visit [facility] [address] [place] [phone] Haroon Prabhakar MD Inguinal hernia of left side without obstruction or gangrene from Last 3 Months Immunizations Immunization Administration Dates Next Due Influenza, Quadrivalent, Spl it, Preservative Free, Intramuscular 05/12/2022,07/07/2021,06/15/2020,05/24 Influenza, Split 05/10/2013 Influenza, Trivalent, Adjuva nted, Intramuscular 06/13/2024 Influenza, Unspecified 06/06/2023,2017(Deferred: Patient Refused) Pfizer SARS-CoV-2 Monovalent Vaccination (12+ Yrs) PURPLE 11/02/2020,10/12/2020 Pfizer Sars-Cov-2 Bivalent V accination (12+ YRS) 05/12/2022 Pneumococcal Conjugate Pcv20 06/07/2022 Tdap 05/24/2018 ZOSTER Recombinant 09/22/2020,07/21/2020 Surgical History Surgery Date Site/Laterality Comments HERNIA REPAIR Hernia repair COLONOSCOPY INGUINAL HERNIA REPAIR 09/13/2024 Medical History Medical History Date Comments Anxiety HLD (hyperlipidemia) ED (erectile dysfunction) Rosacea Left inguinal hernia 08/22/2024 Inguinal hernia of left side without obstruction or gangrene 10/12/2023 Family History Medical History Relation Name Comments Diabetes type II Brother Diabetes -T ype 2; Hyperlipidemia Father Hyperlipidemi a; /Hyperlipidemia; Hypertension Father Hypertension; / Hypertension; Diabetes type II Mother Diabetes -T ype 2; Colon cancer Paternal Grandfather Cancer -colon; Relation Name Status Comments Brother Father Mother (Age 87) Paternal Grandfather Alive Social History Tobacco Use Types Packs/Day [...] on file Legal Sex Male 11:42 AM ARTIFACTS CONSERVATOR Gender Identity Male 09/14/2021 3:00 PM ARTIFACTS CONSERVATOR Sexual Orientation Straight 12/04/2019 9: 00 AM CDT Obstetrics History Last Filed Vital Signs Vital Sign Reading Time Taken Comments Blood Pressure 118/60 09/24/2024 9:22 AM ARTIFACTS CONSERVATOR Pulse 55 09/24/2024 9:22 AM ARTIFACTS CONSERVATOR Temperature 36.3 C (97.3 F) 09/24/2024 9:22 AM ARTIFACTS CONSERVATOR Respiratory Rate 16 09/13/2024 12:2 0 PM ARTIFACTS CONSERVATOR Oxygen Saturation 98% 09/24/2024 9:22 AM ARTIFACTS CONSERVATOR Inhaled Oxygen Concentration - - Weight 70.3 kg (154 lb 14.4 oz) 09/24/2024 9:22 AM ARTIFACTS CONSERVATOR Height 175.3 cm (5' 9 ) 09/24/2024 9:22 AM ARTIFACTS CONSERVATOR Body Mass Index 22.87 09/24/2024 9:22 AM ARTIFACTS CONSERVATOR Plan of Treatment Health Maintenance Due Date Last Done Comments Hepatitis B Screening 1973 Covid-19 Vaccine (2023-09 5 season) 2024 06/13/2024, 06/06/2023, 05/12/2022, Additional history exists Depression Screening 08/29/2025 08/29/2024, 10/12/2023, 12/12/2022, Additional history exists Fall Risk Assessment 08/29/2025 08/29/2024, 10/12/2023, 12/12/2022, Additional history exists Well Visit 65+ 08/29/2025 08/29/2024, 11/20, 07/21/2021, Additional history exists Prostate Cancer Screening-PSA 05/08/2026, 04/06/2023, 04/29/2022 Colon Cancer Screening-Colonoscopy 08/25/2026 08/25/2016, 08/25/2016, 08/25/2016 DTaP/Tdap/Td Vaccine (2 - Td or Tdap) 05/24/2028 05/24/2018 Colon Cancer Screening-CT Colonography Discontinued 08/25/2016, 08/25/2016, 08/25/2016 Colon Cancer Screening-DNA Stool Discontinued 08/25/2016, 08/25/2016, 08/25/2016 Colon Cancer Screening-FIT Discontinued 08/25, 08/25/2016, 08/25/2016 Colon Cancer Screening-Sigmoidoscopy Discontinued 08/25/2016, 08/25/2016, 08/25/2016 Zoster Vaccine Completed 09/22/2020, 07/21/2020 Pneumococcal vaccine 65+ Completed 06/07/2022 Hepatitis C Screening Completed 03/31/2023, 023 Influenza Vaccine Completed 06/13/2024, , 05/12/2022, Additional history exists Medical Devices Implanted Type Area Gang Head Saw Operator Device Identifier Shelf Expiration Date Model / Serial / Lot [employer]/C R Bard Mesh Surgical Inguinal Hernia Synthetic Patch 3dmax 4x6in [id number] - [id number] Implanted:Qty : 1 on 09/13/2024 by Haroon Prabhakar MD at [facility] Left: Inguinal [employer]/C R Bard 04/17/2029 [id number] / / [id number] Procedures Procedure Name Priority Date/Time Associated Diagnosis Comments SURGICAL PATHOLOGY Routine 09/13/2024 1: 17 PM ARTIFACTS CONSERVATOR Left inguinal hernia RI AN ELECTIVE ENDOTRACHEAL AIRWAY Routine 09/13/2024 9:51 AM ARTIFACTS CONSERVATOR XI INGUINAL HERNIA REPAIR - LAPAROSCOPIC ROBOTIC 09/13/2024 9:12 AM ARTIFACTS CONSERVATOR Left inguinal hernia B ABO / RH CONFIRMATION TESTING STAT 09/13/2024 7:50 AM ARTIFACTS CONSERVATOR EGFR STAT 09/13/2024 7:48 AM ARTIFACTS CONSERVATOR DIFFERENTIAL AUTO STAT 09/13/2024 7:4 8 AM ARTIFACTS CONSERVATOR ANTIBODY SCREEN STAT 09/13/2024 7:48 AM ARTIFACTS CONSERVATOR ABO/RH STAT 09/13/2024 7:48 AM ARTIFACTS CONSERVATOR TYPE AND SCREEN STAT 09/13/2024 7:48 AM ARTIFACTS CONSERVATOR CBC WITH AUTO DIFFERENTIAL STAT 09/13/2024 7:48 AM ARTIFACTS CONSERVATOR BASIC METABOLIC PANEL STAT 09/13/2024 7:48 AM ARTIFACTS CONSERVATOR PSA SCREEN Routine 05/08/2024 8:14 AM CDT HEPATITIS C ANTIBODY Routine 03/31/2023 8:29 AM CDT Need for hepatitis C screening test COLONOSCOPY IMAGES 08/25/2016 from Last 3 Months or Most Recently Relevant to Health Maintenance Results * Surgical pathology (09/13/2024 1:17 PM ARTIFACTS CONSERVATOR) Tissue (Hernia sac) 09/13/2024 10:41 AM ARTIFACTS CONSERVATOR Narrative PATHOLOGY [facility] ([place]) - 09/16/2024 4:19 PM ARTIFACTS CONSERVATOR EPIC results best viewed via link to PDF [facility] Department of Pathology [address] [place] [id number] Note to Patients: This report may contain [...] Final Report Patient Name: DIOMEDES AMOR Address: [facility] [address], [place] [address] Gender: M : 1955 (Age: 69) Service: Surgery Location: [facility] Hospital #: [id number] Patient Type: [facility] Taken: 09/13/2024 Received: 09/13/2024 Accessioned: 09/13/2024 Reported: [...] determined by the Surgical Pathology Department at [facility] as part of an ongoing quality controller program and in compliance with federally mandated [...] characteristics determined by the Surgical Pathology Department [facility]. It has not been cleared or approved by the U. S. Food and Drug Administration. Note for decalcified specimens: This assay has not been validated on decalcified tissues. Results should be interpreted with caution given the possibility of false negativity on decalcified specimens Haroon Prabhakar MD LAB PATHOLOGY OR DERABLES Final Result Performing Organization Address City/State/[place] Co de Phone Number PATHOLOGY [place] [id number] * RI AN ELECTIVE ENDOTRACHEAL AIRWAY (09/13/2024 9:51 AM ARTIFACTS CONSERVATOR) Narrative Haroon Gunter CRNA - 09/13/2024 9:51 AM ARTIFACTS CONSERVATOR Haroon Gunter CRNA 09/13/2024 9:52 AM Airway Patient location: OR Urgency: elective Indications for airway management: anesthesia Difficult airway: no Staff: Placed by: JUMPBASTING CANVAS BASTER: Haroon Gunter CRNA Emergent airway documentation: Risks [...] with: silk tape Number of attempts: 1 us Haroon Gunter CRNA ANESTHESIA ORDERABLES Final Re sult * ABO / Rh Confirmation Testing (09/13/2024 7:50 AM ARTIFACTS CONSERVATOR) ABO/Rh Confirmation O Positive [facility] Blood 09/13/2024 7:50 AM ARTIFACTS CONSERVATOR 09/13/2024 8:35 AM ARTIFACTS CONSERVATOR Haroon Prabhakar MD LAB BLOOD ORDERA BLES Final Result [facility] ([place]) [address] [place] [address] [facility] * eGFR (09/13/2024 7:48 AM ARTIFACTS CONSERVATOR) eGFR >90 >=60 mL/min/1. 73 m2 Comment: [...] last reviewed 2021. Blood 09/13/2024 7:48 AM ARTIFACTS CONSERVATOR 09/13/2024 7:53 AM ARTIFACTS CONSERVATOR Haroon Prabhakar MD LAB BLOOD ORDERA BLES Final Result [facility] ([place]) [address] Department of Laboratories [place], [place] [id number] * Differential, auto (09/13/2024 7:48 AM ARTIFACTS CONSERVATOR) Neutrophil abs 2.4 1.5 - 6.5 K/cumm Imm gran abs 0.0 0.0 - 0.1 K/cumm [facility] ([place]) Lymphocyte abs 1.9 0.8 - 3.3 K/cumm [facility] ([place]) Monocyte abs 0.5 0.2 - 0.8 K/cumm [facility] ([place]) Eosinophil abs 0.3 0.0 - 0.5 K/cumm [facility] ([place]) Basophil abs 0.1 0.0 - 0.1 K/cumm [facility] ([place]) Neutrophil pct 47.2 % [facility] ([place]) Comment: Interpretive Data Percent cell count reference ranges are not reported, since discordance with absolute values may lead to misinterpretation of CBC data. Current Interpretive Data was last revised on 2017. Imm gran pct 0.2 % [facility] ([place]) Comment: Interpretive Data Percent cell count reference [...] revised on 2017. Blood 09/13/2024 7:48 AM ARTIFACTS CONSERVATOR 09/13/2024 7:53 AM ARTIFACTS CONSERVATOR Haroon Prabhakar MD LAB BLOOD ORDERA BLES Final Result [facility] ([place]) [address] Department [place] [address] * CBC with auto differential (09/13/2024 7:48 AM ARTIFACTS CONSERVATOR) WBC 5.1 3.8 - 9.9 K/cumm Hgb [...] [facility] ([place]) Blood 09/13/2024 7:48 AM ARTIFACTS CONSERVATOR 09/13/2024 7:53 AM ARTIFACTS CONSERVATOR Haroon Prabhakar MD LAB BLOOD ORDERA BLES Final Result Performing Organization Address City/[facility] de Phone Number [facility] ([place]) [address] [place] [address] * ABO/Rh (09/13/2024 7:48 AM ARTIFACTS CONSERVATOR) Pathologist [facility] ABO/Rh O Positive Blood 09/13/2024 7:48 AM ARTIFACTS CONSERVATOR 09/13/2024 7:53 AM ARTIFACTS CONSERVATOR Narrative [facility] ([place]) - 09/13/2024 8:34 AM ARTIFACTS CONSERVATOR Has the patient had Daratumumab or Isatuximab in the past 6 months?->Unknown Haroon Prabhakar MD LAB BLOOD BANK T EST ORDERABLES Final Result Performing Organization Address [facility] de Phone Number [facility] ([place]) [address] [place] [address] * Antibody screen (09/13/2024 7:48 AM ARTIFACTS CONSERVATOR) [facility] Alicia, indirect, Gel Interpretation Negative ABSC Blood 09/13/2024 7:48 AM ARTIFACTS CONSERVATOR 09/13/2024 7:53 AM ARTIFACTS CONSERVATOR Narrative [facility] ([place]) - 09/13/2024 8:34 AM ARTIFACTS CONSERVATOR Has the patient had Daratumumab or Isatuximab in the past 6 months?->Unknown Haroon Prabhakar MD LAB BLOOD BANK T EST ORDERABLES Final Result Performing Organization Address [facility]/[place] Co de Phone Number [facility] ([place]) [address] [place] [address] * (ABNORMAL) Basic metabolic panel (09/13/2024 7:48 AM ARTIFACTS CONSERVATOR) [facility] Sodium 137 135 - 145 mmol/L Potassium, pl 3.7 3.3 - 4.9 mmol/L [facility] ([place]) Chloride 99 97 - 110 mmol/L [facility] ([place]) CO2 27 22 - 32 mmol/L [facility] ([place]) Anion gap 11 2 - 15 mmol/L [facility] ([place]) BUN 11 6 - 25 mg/dL [facility] ([place]) Creatinine 0.75(L) 0.80 - 1.30 mg/dL [facility] ([place]) Glucose 110 70 - 199 mg/dL [facility] ([place]) Comment: Interpretive Data Fasting glucose >/= 126 [...] classification and Diagnosis of Diabetes Diabetes Care 2021; 46: S19-S40. Current interpretive data was last revised 2022. Calcium 9.6 8.5 - 10.3 mg/dL [facility] ([place]) Blood 09/13/2024 7:48 AM ARTIFACTS CONSERVATOR 09/13/2024 7:53 AM ARTIFACTS CONSERVATOR us Haroon Prabhakar MD LAB BLOOD ORDERA BLES Final Result [facility]) [address] [facility] Department [place] [address] * PSA screen (05/08/2024 8:14 AM CDT) PSA 1.06 < OR = 4.00 ng/mL [facility] Comment: The total PSA value from this assay system is standardized against the WHO standard. The test result will be approximately 20% lower when compared to the equimolar-standardized total PSA (Chuyita [place]). Comparison of serial PSA results should be [...] 05/09/2024 5:14 AM CDT FASTING:YES FASTING: YES Una Tamez NP LAB BLOOD ORDERABLES Final Re sult Performing Organization Address [facility] Co de Phone Number [facility] [address] [place] [address] * Hepatitis C antibody (03/31/2023 8:29 AM CDT) Hep C Ab NON-REACTI VE NON-REACT NAEEM [facility] Comment: HCV antibody was non-reactive. There is no laboratory evidence of HCV infection. In most cases, no further action is required. However, if recent HCV exposure is suspected, a test for HCV RNA (test code 99055) is suggested. For additional information please refer to http://education.ClipMine/faq/CPZ76i5 (This link is being provided for informational/ educational purposes only.) Blood 03/31/2023 8:29 AM CDT 03/31/2023 8:29 AM CDT Narrative [facility] - 04/01/2023 3:51 AM CDT FASTING:YES FASTING: YES Una Tamez NP LAB MICROBIOLOGY - GENERAL OR DERABLES Final Result Performing Organization Address [facility] de Phone Number [employer] [address] [place] [address] * COLONOSCOPY IMAGES (08/25/2016) Anatomical Region Laterality Modality Other Narrative 08/25/2016 Ordered by an unspecified provider. Historical Provider GI PROCEDURE ORDERABLES F inal Result from Last 3 Months or Most Recently Relevant to Health Maintenance Insurance [employer] MEDICARE PPO [facility] CMR Care Teams Track Oiler Relationship Specialty Start Date End Date Una Tamez NP PCP - General Family Medicine 02/06/18
== END ==
LOC: ANHLAB 10:53
PROVIDERS: Visit Provider Plastic Surgery
DX: C44.92 Squamous cell carcinoma of skin, unspecified (principal)
CPT/HCPCS: 88305